=== PATIENT | female | born 1955 | race Two or more races ===

== ENCOUNTER 2024-09-13 09:45 | Emergency (ER) | payer OTHER ==
[~2024-09-13] VITALS: Ht 160 cm; Wt 81.6 kg
[2024-09-13] MEDS ORDERED: JANUMET XR 50-1 EAC1 PO (11:08)
[2024-09-13] MEDS ORDERED: JARDIANCE25 MG PO (11:08)
[2024-09-13] MEDS ORDERED: LANTUS SOL100 UNIT/1 SQ (11:09)
[2024-09-13] MEDS ORDERED: COZAAR50 MG PO (11:09)
[2024-09-13] MEDS ORDERED: ATORVASTATIN CA20 MG PO (11:09)
[2024-09-13] MEDS ORDERED: NEURIN SL (11:10)
[2024-09-13] MEDS ORDERED: TOPROL XL25 M1 (11:11)
[2024-09-13] MEDS ORDERED: PRAZOSIN HCL1 MG PO (11:11)
[2024-09-13] MEDS ORDERED: ASTEPRO AL205.5 MCG/ NS (11:11)
[2024-09-13] MEDS ORDERED: ACETAMINOPHEN 500 MG GEL..CAP PO ONE (14:15)
[2024-09-13 14:50] LABS: HEMATOCRIT 38.9 % (36.0-45.00); HEMOGLOBIN 13.2 g/dL (12.0-15.00); MEAN CELL VOLUME 86.8 fL (80.00-100.00); MEAN CORPUSCULAR HEMOGLOBIN 29.4 pg (27.00-32.0); MEAN CORPUSCULAR HGB CONC 33.9 g/dl (32.0-36.0); PLATELET COUNT 226 K/uL (150-450); RED BLOOD COUNT 4.48 M/uL (4.00-6.00); RED CELL DISTRIBUTION WIDTH 14.5 % (11.5-14.5)
[2024-09-13 15:17] LABS: CALCIUM 10.1 mg/dL (8.5-10.1); CREATININE SERUM 1.07 mg/dL (0.55-1.02); GFR 50.84; POTASSIUM 3.68 mEq/L (3.5-5.1)
== END 2024-09-13 19:15 | disposition home or self-care (01) ==
LOC: ER 09:47
PROVIDERS: General Practice
DX: S09.8XXA Other specified injuries of head, initial encounter (principal); W19.XXXA Unspecified fall, initial encounter; Y93.89 Activity, other specified; Y92.89 Other specified places as the place of occurrence of the external cause; Y99.8 Other external cause status; H10.30 Unspecified acute conjunctivitis, unspecified eye; R05.9 Cough, unspecified; Z20.822 Contact with and (suspected) exposure to COVID-19; I10 Essential (primary) hypertension; E11.9 Type 2 diabetes mellitus without complications; Z79.4 Long term (current) use of insulin